=== PATIENT | male | born 1985 | race Caucasian/White ===

== ENCOUNTER → 2019-01-17 | Outpatient (CLI) | payer OTHER ==
--- NOTE | 2019-01-17 12:56 | REP ---
MRI brain: 01/17/2019. Indication: Headache. Comparison: None. Findings: There are no areas of restricted diffusion. There is no significant intracranial hemorrhage. No signal abnormalities are present within the brainstem or brain parenchyma. The midline structures, and craniocervical junction are unremarkable. No significant signal abnormalities are present within the brainstem or brain parenchyma. No significant fluid is present within the visualized paranasal sinuses/mastoid air cells. Impression: No acute intracranial process. Electronically Signed by Manpreet Patino DO 01/17/2019 12:49 P
--- NOTE | 2019-01-17 13:05 | REP ---
Intra and extracranial MRA: 01/17/2019. Indication: Headache. Dizziness. Comparison: None. Technique: 3-D [id number] imaging of the new intra-axial cranial circulations were performed. No IV Gadolinium was administered. Findings: There is no intracranial high-grade stenosis, vessel occlusion, aneurysm or AVM. There is no hemodynamically significant extracranial ICA stenosis by NASCET criteria or additional significant extracranial abnormalities of the carotid or vertebral arteries. Impression: No high-grade stenosis or vessel occlusion. Electronically Signed by Manpreet Patino DO 01/17/2019 12:57 P
--- NOTE | 2019-01-17 13:06 | REP ---
Intra and extracranial MRA: 01/17/2019. Indication: Headache. Dizziness. Comparison: None. Technique: 3-D [id number] imaging of the new intra-axial cranial circulations were performed. No IV Gadolinium was administered. Findings: There is no intracranial high-grade stenosis, vessel occlusion, aneurysm or AVM. There is no hemodynamically significant extracranial ICA stenosis by NASCET criteria or additional significant extracranial abnormalities of the carotid or vertebral arteries. Impression: No high-grade stenosis or vessel occlusion. Electronically Signed by Manpreet Patino DO 01/17/2019 12:57 P
== END ==
LOC: M PLARAD 08:28
PROVIDERS: ATTEND Psychiatry & Neurology Neurology
DX: G43.909 Migraine, unspecified, not intractable, without status migrainosus (principal)

== ENCOUNTER → 2019-10-30 | Emergency (ER) | payer OTHER | END | disposition left against medical advice (07) | LOC: M ED 14:40 | DX: Z53.21 Procedure and treatment not carried out due to patient leaving prior to being seen by health care provider (principal) ==

== ENCOUNTER → 2020-01-30 | Outpatient (CLI) | payer OTHER ==
--- NOTE | 2020-02-03 00:43 | ECWPNPC ---
PATIENT NAME: GUTIERREZ RESENDIZ : 1985 GENDER: MALE VISIT DATE: 01/30/2020 DISCHARGE DATE: 01/30/20 0950 VISIT LOCKED DATE TIME: PHYSICIAN: FABIANA SWIFT RESOURCE: FABIANA SWIFT REASON FOR APPOINTMENT 1. THORACIC AND LUMBAR PAIN HISTORY OF PRESENT ILLNESS DEPRESSION SCREENING: PHQ-9 LITTLE INTEREST OR PLEASURE IN DOING THINGSSEVERAL DAYS FEELING DOWN, DEPRESSED, OR HOPELESSSEVERAL DAYS TROUBLE FALLING OR STAYING ASLEEP, OR SLEEPING TOO MUCHNEARLY EVERY DAY FEELING TIRED OR HAVING LITTLE ENERGYSEVERAL DAYS POOR APPETITE OR OVEREATING SEVERAL DAYS FEELING BAD ABOUT YOURSELF-OR THAT YOU ARE A FAILURE OR HAVE LET YOURSELF OR YOUR FAMILY DOWN NOT AT ALL TROUBLE CONCENTRATING ON THINGS, SUCH READING THE NEWSPAPER OR WATCHING TELEVISION SEVERAL DAYS MOVING OR SPEAKING SO SLOWLY THAT OTHER PEOPLE COULD HAVE NOTICED. OR THE OPPOSITE- BEING SO FIDGETY OR RESTLESS THAT YOU HAVE BEEN MOVING AROUND A LOT MORE THAN USUALNOT AT ALL THOUGHTS THAT YOU WOULD BE BETTER OFF , OR OF HURTING YOURSELF IN SOME WAY?NOT AT ALL TOTAL SCORE:8 INTERPRETATIONMILD DEPRESSION PHQ-2 (2015 EDITION) LITTLE INTEREST OR PLEASURE IN DOING THINGS?SEVERAL DAYS FEELING DOWN, DEPRESSED, OR HOPELESS?SEVERAL DAYS TOTAL SCORE2 GENERAL: 34-YEAR-OLD GENTLEMAN REFERRED BY [facility] IN [place] TO EVALUATE CHRONIC GENERALIZED BACK PAIN. REPORTS LONG HISTORY OF GENERALIZED BACK PAIN DATING BACK TO HIGH SCHOOL. REPORTS AN INCIDENT IN 2016 WHERE HE WAS LIFTING A CAR AND PUSHING VEHICLE UP HILL. ALSO REPORTS A FALL INJURY APPROXIMATELY 5 MONTHS AGO STEPPING OFF A TRUCK INJURING HIS ANKLE AND FLAREUP OF CHRONIC LOW BACK PAIN. WORST AREA OF PAIN IS LOWER THORACIC REGION. PAIN IS AGGRAVATED BY PROLONGED SITTING AND BENDING. REVIEWED MRI OF THE LS-SPINE AND THORACIC SPINE. DISCUSSED TREATMENT PLAN. DENIES BOWEL OR BLADDER INCONTINENCE.- - -. FALL RISK SCREENING: SCREENING :ONE FALL WITH INJURY IN THE PAST YEAR FELL OFF OF TRUCK AND BRUISED BONE IN ANKLE PER PATIENT PAIN SCREENING: PATIENT HAS A COMPLAINT OF ACUTE OR CHRONIC PAIN :YES LOCATION OF PAIN:UPPER BACK, MID BACK, LOW BACK INTENSITY OF PAIN (SCALE OF 1 TO 10):4 WHAT DOES YOUR PAIN FEEL LIKE:STABBING, SORE DURATION:STEADY PAIN IS INCREASED BY:PROLONGED STANDING, ACTIVITIES PLAN/GOALS/TREATMENT/INTERVENTION/FOLLOW UP:SEE PLAN NURSING NOTE: - - -. PAIN CENTER INTAKE QUESTIONS: DO YOU HAVE A HISTORY OF MRSA? :NO DO YOU TAKE A BLOOD THINNERS? :NO DO YOU HAVE ANY BLEEDING DISORDERS? :NO ANY NEW NUMBNESS OR WEAKNESS IN YOUR LEGS OR ARMS? :NO ANY PACEMAKER,DEFIBRILLATOR, OR DORSAL COLUMN STIMULATOR? :NO DO YOU HAVE ANY RASHES OR OPEN SORES? :NO ARE YOU ALLERGIC TO IV DYE? :NO ARE YOU DIABETIC? :NO PATIENT ON METFORMIN FOR WEIGHT LOSS ANY NEW PROBLEMS WITH YOUR MEDICATIONS? :NO HAVE YOU RECEIVED A VACCINE IN THE PAST 30 DAYS? :NO DO YOU PLAN TO RECEIVE A VACCINE IN THE NEXT 21 DAYS? :NO PATIENT EDUCATED ABOUT WAITING 21 DAYS POST PROCEDURE FOR FLU VACCINE IF A PROCEDRE IS APPLICABLE DO YOU NEED ANY PRESCRIPTION? :NO DO YOU TAKE ANY IMMUNOSUPPRESSIVE MEDICATIONS? :NO CURRENT MEDICATIONS TAKING AIMOVIG 70 MG/ML SOLUTION AUTO-INJECTOR DIRECTED SUBCUTANEOUS TAKING TOPIRAMATE 100 MG TABLET 1 TABLET ORALLY BID TAKING GABAPENTIN 300 MG CAPSULE 1 CAPSULE ORALLY TID TAKING METOPROLOL SUCCINATE ER 50 MG TABLET EXTENDED RELEASE 24 HOUR 1 TABLET ORALLY ONCE A DAY TAKING METFORMIN HCL 1000 MG TABLET 1 TABLET WITH A MEAL ORALLY BID TAKING OMEPRAZOLE 40 MG CAPSULE DELAYED RELEASE 1 CAPSULE 30 MINUTES BEFORE MORNING MEAL ORALLY ONCE A DAY TAKING BUPROPION HCL 75 MG TABLET 2 TABLETS ORALLY TWICE A DAY TAKING LIPITOR 40 MG TABLET 1 TABLET ORALLY ONCE A DAY TAKING LISINOPRIL 40 MG TABLET 1 TABLET ORALLY ONCE A DAY TAKING ASPIR-81 TAKING SINGULAIR 10 MG TABLET 1 TABLET ORALLY ONCE A DAY TAKING VITAMIN D3 COMPLETE - TABLET DIRECTED ORALLY 125MCG DAILY MEDICATION LIST REVIEWED AND RECONCILED WITH THE PATIENT PAST MEDICAL HISTORY HEART ATTACK (1 STENT) HYPERTENSION DYSLIPIDEMIA ANXIETY DEPRESSION OBESITY HIATAL HERNIA MIGRAINE HEADACHES ESOPHAGEAL REFLUX SLEEP APNEA INSOMNIA ALLERGIES SEASONAL: CONGESTION - ALLERGY PENICILLIN (FOR ALLERGIES USE ONLY): ANGIOEDEMA SURGICAL HISTORY HERNIA REPAIR STENT PLACEMENT 2016 FAMILY HISTORY FATHER: ALIVE, DIAGNOSED WITH HYPERTENSION, DIABETES MOTHER: ALIVE SIBLINGS: ALIVE FATHER: BACK PAIN, SLEEP APNEAMOTHER: SLEEP APNEASISTER: ASTHMA. SOCIAL HISTORY GENERAL: TOBACCO USE ARE YOU A:FORMER SMOKER HOW LONG HAS IT BEEN SINCE YOU LAST SMOKED?1-5 YEARS VAPORNO E-CIGARETTENO LATEX QUESTIONNAIRE LATEX ALLERGY : HAVE YOU EVER DEVELOPED ANY TYPE OF REACTION AFTER HANDLING LATEX PRODUCTS SUCH RUBBER GLOVES, CONDOMS, DIAPHRAGMS, BALLOONS, SOCKS, OR UNDERWEAR?NO LATEX ALLERGY : HAVE YOU EVER DEVELOPED ANY TYPE OF REACTION DURING OR AFTER DENTAL APPOINTMENT, VAGINAL/RECTAL EXAMINATION, SURGICAL PROCEDURE, OR ANY OTHER EXPOSURE?NO LATEX RISK : HAVE YOU EVER HAD ANY DIFFICULTY BREATHING OR HIVES AFTER EATING OR HANDLING ANY FRUITS, OR VEGETABLES; SUCH KIWI, BANANAS, STONE FRUITS, OR CHESTNUTSNO LATEX RISK : DO YOU HAVE A PREVIOUS PERSONAL HISTORY OF MORE THAN NINE SURGERIES, SPINA BIFIDA, OR REPEATED CATHERIZATIONS? NO LATEX RISK : ARE YOU FREQUENTLY EXPOSED TO LATEX PRODUCTS IN YOUR OCCUPATION?NO DATE ASKED : 01/30/2020 ALCOHOL SCREENING DID YOU HAVE A DRINK CONTAINING ALCOHOL IN THE PAST YEAR?YES HOW OFTEN DID YOU HAVE A DRINK CONTAINING ALCOHOL IN THE PAST YEAR?MONTHLY OR LESS (1 POINT) HOW MANY DRINKS DID YOU HAVE ON A TYPICAL DAY WHEN YOU WERE DRINKING IN THE PAST YEAR?1 OR 2 (0 POINTS) HOW OFTEN DID YOU HAVE SIX OR MORE DRINKS ON ONE OCCASION IN THE PAST YEAR?NEVER (0 POINTS) POINTS1 INTERPRETATIONNEGATIVE RECREATIONAL DRUG USE DRUG USE?NO LANGUAGE LANGUAGES SPOKEN:PORTUGUESE EDUCATION LEVEL OF EDUCATION:HIGH SCHOOL LEARNING BARRIERS / SPECIAL NEEDS BARRIERS TO LEARNING?NO HEARING IMPAIRED?YES :HEARING AIDES BILATERAL VISION IMPAIRED?NO COGNITIVELY IMPAIRED?NO READINESS TO LEARN?YES LEARNING PREFERENCES?YES :TAPES/VIDEOS, HANDOUTS, CLASSES, DEMONSTRATION/VERBAL INSTRUCTION LEARNING CAPABILITIES PRESENT?YES EMOTIONAL BARRIERS?NO SPECIAL DEVICES?NO POWER SHOVEL OPERATOR HELPER NEEDED?NO OCCUPATION: UNEMPLOYED. DIET: NO ADDED SALT, NO CONCENTRATED SWEETS., CARBOHYDRATE CONTROLLED. HOUSING: PARENTS HOME. ADVANCE DIRECTIVE ADVANCE DIRECTIVE DISCUSSED WITH PATIENT:YES DENIES HCP AT THIS TIME, PAPERWORK GIVEN TO PATIENT. HOSPITALIZATION/MAJOR DIAGNOSTIC PROCEDURE SURGERY RELATED REVIEW OF SYSTEMS CONSTITUTIONAL: ANY RECENT FEVER NO . CHILLS NO . WEIGHT CHANGE OF UNKNOWN REASONS NO . GASTROENTEROLOGY: NEW UNEXPLAINABLE CHANGES IN BOWEL CONTROL NO . CONSTIPATION NO . GENITOURINARY: ANY NEW CHANGE IN BLADDER CONTROL? NO . NEUROLOGY: NEW ONSET DIZZINESS OR NEUROLOGICAL CHANGES NOT MENTIONED NO . NEW NUMBNESS OR PAIN PATTERNS NOT MENTIONED AND PERTINENT TO TODAY'S VISIT NO . CARDIOLOGY: NEW CHEST PRESSURE NO . NEW CHEST PAIN NO . RESPIRATORY: UNEXPLAINABLE COUGH NO . NEW SHORTNESS OF BREATH NO . VITAL SIGNS WT 477.4 LBS, HT 74 IN, BMI 61.29 INDEX, BP 179/77 MM HG, HR 81 /MIN, RR 20 /MIN, TEMP 97.1 F, OXYGEN SAT % 98%, SAFE IN ENV? (Y/N) YES, NA INITIALS WA 08:41, REVIEWED BY: CALISTA WEBSTER RN BSN. EXAMINATION GENERAL EXAMINATION: GENERALMORBIDLY OBESE , PLEASANT . PSYCHAPPROPRIATE MOOD AND AFFECT . FACE:UNREMARKABLE. NECK:NO LYMPHADENOPATHY, SUPPLE, . LUNGS:CLEAR TO AUSCULTATION BILATERALLY, NO WHEEZES, RHONCHI, RALES. HEART:NO MURMURS, REGULAR RATE AND RHYTHM. MUSCULOSKELETAL:NORMAL RANGE OF MOTION/MUSCLE STRENGTH TESTING 5/5 UPPER AND LOWER EXTREMITIES. LUMBAR:TENDER OVER L/S AXIS AND LUMBAR PARASPINALS . THORACIC SPINE:MARKED TENDERNESS NOTED OVER LOWER THORACIC SPINE AND PARASPINALS TRIGGER POINTS ELICITED MID TO LOWER THORACIC PARASPINALS. PAIN IN THIS AREA IS EXAGGERATED WITH RANGE OF JOINT MOTION OF THE SPINE. . DIAGNOSTIC TESTS REVIEWEDMRI OF THE LUMBOSACRAL SPINE AND THORACIC SPINE 2019 . 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 OTHERS NOTES: 01/30/20 0905 NURSE SPOKE WITH QMP, PROVIDER AWARE PATIENT PATIENT SCORED AN 8 ON PHQ9, PATIENT IS NOT ESTABLISHED WITH MENTAL HEALTH SERVICES AT THIS TIME BUT IS ON PSYCHTROPIC MEDICATION. PATIENT GIVEN [facility] INFORMATION. LUKE WEBSTER RN BSN. PROCEDURE CODES FA211 ESTABILISHED PATIENT [facility] CHARGE DISPOSITION & COMMUNICATION FOLLOW UP POST PROCEDURE (REASON: T 11 THORACIC EPIDURAL STEROID INJECTION) ELECTRONICALLY SIGNED BY DARRELL WILLETT ON 02/02/2020 AT 11:13 AM EST DISCLAIMER : THIS IS A VISIT SUMMARY EXTRACTED FROM THE [employer] CHART. IT IS NOT A COPY OF THE [employer] PROGRESS NOTE. SARI
== END ==
LOC: M PAIN 08:30
PROVIDERS: ATTEND Nurse Practitioner Family
DX: M51.24 Other intervertebral disc displacement, thoracic region (principal); I25.2 Old myocardial infarction; E78.5 Hyperlipidemia, unspecified; F41.9 Anxiety disorder, unspecified; F32.9 Major depressive disorder, single episode, unspecified; E66.9 Obesity, unspecified; K44.9 Diaphragmatic hernia without obstruction or gangrene; G43.909 Migraine, unspecified, not intractable, without status migrainosus; Z95.5 Presence of coronary angioplasty implant and graft; K21.9 Gastro-esophageal reflux disease without esophagitis; G47.30 Sleep apnea, unspecified; G47.00 Insomnia, unspecified; Z87.891 Personal history of nicotine dependence; Z79.82 Long term (current) use of aspirin; Z79.84 Long term (current) use of oral hypoglycemic drugs; Z79.899 Other long term (current) drug therapy; Z88.0 Allergy status to penicillin; J30.2 Other seasonal allergic rhinitis; Z68.44 Body mass index [BMI] 60.0-69.9, adult

== ENCOUNTER → 2020-02-21 | Outpatient (CLI) | payer OTHER | LOC: M LABSMTC 11:46 | PROVIDERS: ATTEND Anesthesiology | DX: Z20.828 Contact with and (suspected) exposure to other viral communicable diseases (principal) ==

== ENCOUNTER → 2020-02-24 | Outpatient (CLI) | payer OTHER ==
[~2020-02-24] MED LIST: ISOVUE-M 300 61% 15ML VIAL As Ordered ONE; LIDOCAINE 1% SDV 30ML VIAL As Ordered ONE; NORCO, ANEXSIA 5/325MG TABLET (HYDROcodone/ACETAMINOPHEN) As Ordered ONE; methylPREDNISolone SUSP 40MG/ML 1ML VIAL (DEPO MEDROL) As Ordered ONE
--- NOTE | 2020-02-24 15:12 | REP ---
INDICATION: PAIN. COMPARISON: None. TECHNIQUE: Four views. 38.2 seconds of fluoroscopy time is reported. FINDINGS: A sequence of 4 last image hold fluoroscopically obtained spot radiograph(s) of the lumbar spine document(s) needle position(s) and contrast injection associated with injection procedure. IMPRESSION: Procedural imaging. <Electronically signed by Tristen Anderson > 02/24/20 [id number]
--- NOTE | 2020-03-03 04:27 | ECWPNPC ---
PATIENT NAME: GUTIERREZ RESENDIZ : 1985 GENDER: MALE VISIT DATE: 02/24/2020 DISCHARGE DATE: 02/24/20 1528 VISIT LOCKED DATE TIME: PHYSICIAN: MAREK IRBY MD RESOURCE: MAREK IRBY MD REASON FOR APPOINTMENT 1. THORACIC EPIDURAL STEROID INJECTION T11-T12 HISTORY OF PRESENT ILLNESS GENERAL: -. FALL RISK SCREENING: SCREENING :ONE FALL WITH INJURY IN THE PAST YEAR PAIN SCREENING: PATIENT HAS A COMPLAINT OF ACUTE OR CHRONIC PAIN :YES LOCATION OF PAIN:UPPER BACK, MID BACK, LOW BACK INTENSITY OF PAIN (SCALE OF 1 TO 10):7 WHAT DOES YOUR PAIN FEEL LIKE:ACHING, CONTINOUS, THROBBING DURATION:CONTINOUS, CONSTANT PAIN IS INCREASED BY:ACTIVITIES, PROLONGED STANDING PAIN IS DECREASED BY:USE OF PAIN MEDICATIONS, OTHERS REST, HEAT NURSING NOTE: -. PAIN CENTER INTAKE QUESTIONS: DO YOU HAVE A HISTORY OF MRSA? :NO DO YOU TAKE A BLOOD THINNERS? :NO DO YOU HAVE ANY BLEEDING DISORDERS? :NO ANY NEW NUMBNESS OR WEAKNESS IN YOUR LEGS OR ARMS? :NO ANY PACEMAKER,DEFIBRILLATOR, OR DORSAL COLUMN STIMULATOR? :NO DO YOU HAVE ANY RASHES OR OPEN SORES? :NO ARE YOU ALLERGIC TO IV DYE? :NO ARE YOU DIABETIC? :NO ANY NEW PROBLEMS WITH YOUR MEDICATIONS? :NO HAVE YOU RECEIVED A VACCINE IN THE PAST 30 DAYS? :NO DO YOU PLAN TO RECEIVE A VACCINE IN THE NEXT 21 DAYS? :NO DO YOU TAKE ANY IMMUNOSUPPRESSIVE MEDICATIONS? :NO ANY HISTORY OF SEIZURES? :NO ANY HISTORY OF CARDIAC ISSUES OR EVENTS? :YES HISTORY OF MYOCARDIAL INFARCTION WITH 1 CORONARY STENT. DO YOU HAVE SLEEP APNEA? :YES DO YOU WEAR A CPAP?YES ANY RECENT HEAD INJURY? :NO DO YOU HAVE ANY NEW INFECTIONS? :NO IS THERE A CHANCE YOU COULD BE ? :NO ARE YOU BREAST FEEDING? :NO WHEN DID YOU LAST EAT? : 02/23/201999 WHEN DID YOU LAST DRINK? : 02/24/20829 WHAT DID YOU LAST DRINK? : SPRITE NAME OF PERSON DRIVING YOU HOME? : (MOTHER) NICOLLE DO YOU HAVE ANY OTHER QUESTIONS OR CONCERNS? : NO CURRENT MEDICATIONS TAKING AIMOVIG 70 MG/ML SOLUTION AUTO-INJECTOR DIRECTED SUBCUTANEOUS MONTHLY, NOTES: 02/09/20 TAKING TOPIRAMATE 100 MG TABLET 1 TABLET ORALLY BID, NOTES: 11/30/20 2100 TAKING GABAPENTIN 300 MG CAPSULE 1 CAPSULE ORALLY TID, NOTES: 02/24/20829 TAKING METOPROLOL SUCCINATE ER 50 MG TABLET EXTENDED RELEASE 24 HOUR 1 TABLET ORALLY ONCE A DAY, NOTES: 02/24/20829 TAKING METFORMIN HCL 1000 MG TABLET 1 TABLET WITH A MEAL ORALLY BID, NOTES: 02/23/20829 TAKING OMEPRAZOLE 40 MG CAPSULE DELAYED RELEASE 1 CAPSULE 30 MINUTES BEFORE MORNING MEAL ORALLY TWICE DAILY, NOTES: 02/24/20829 TAKING BUPROPION HCL 75 MG TABLET 2 TABLETS ORALLY TWICE A DAY, NOTES: 02/24/20829 TAKING LIPITOR 40 MG TABLET 1 TABLET ORALLY ONCE A DAY, NOTES: 02/23/202099 TAKING LISINOPRIL 40 MG TABLET 1 TABLET ORALLY ONCE A DAY, NOTES: 02/24/20829 TAKING ASPIR-81 DAILY, NOTES: 02/24/20829 TAKING SINGULAIR 10 MG TABLET 1 TABLET ORALLY ONCE A DAY, NOTES: 02/24/20829 TAKING VITAMIN D3 COMPLETE - TABLET DIRECTED ORALLY 125MCG DAILY, NOTES: 02/24/20829 MEDICATION LIST REVIEWED AND RECONCILED WITH THE PATIENT PAST MEDICAL HISTORY HEART ATTACK (1 STENT) HYPERTENSION DYSLIPIDEMIA ANXIETY DEPRESSION OBESITY HIATAL HERNIA MIGRAINE HEADACHES ESOPHAGEAL REFLUX SLEEP APNEA INSOMNIA ALLERGIES SEASONAL: CONGESTION - ALLERGY PENICILLIN (FOR ALLERGIES USE ONLY): ANGIOEDEMA SURGICAL HISTORY HERNIA REPAIR STENT PLACEMENT 2015 FAMILY HISTORY FATHER: ALIVE, DIAGNOSED WITH HYPERTENSION, DIABETES MOTHER: ALIVE SIBLINGS: ALIVE FATHER: BACK PAIN, SLEEP APNEAMOTHER: SLEEP APNEASISTER: ASTHMA. SOCIAL HISTORY GENERAL: TOBACCO USE ARE YOU A:FORMER SMOKER HOW LONG HAS IT BEEN SINCE YOU LAST SMOKED?1-5 YEARS VAPORNO E-CIGARETTENO LATEX QUESTIONNAIRE LATEX ALLERGY : HAVE YOU EVER DEVELOPED ANY TYPE OF REACTION AFTER HANDLING LATEX PRODUCTS SUCH RUBBER GLOVES, CONDOMS, DIAPHRAGMS, BALLOONS, SOCKS, OR UNDERWEAR?NO LATEX ALLERGY : HAVE YOU EVER DEVELOPED ANY TYPE OF REACTION DURING OR AFTER DENTAL APPOINTMENT, VAGINAL/RECTAL EXAMINATION, SURGICAL PROCEDURE, OR ANY OTHER EXPOSURE?NO LATEX RISK : HAVE YOU EVER HAD ANY DIFFICULTY BREATHING OR HIVES AFTER EATING OR HANDLING ANY FRUITS, OR VEGETABLES; SUCH KIWI, BANANAS, STONE FRUITS, OR CHESTNUTSNO LATEX RISK : DO YOU HAVE A PREVIOUS PERSONAL HISTORY OF MORE THAN NINE SURGERIES, SPINA BIFIDA, OR REPEATED CATHERIZATIONS? NO LATEX RISK : ARE YOU FREQUENTLY EXPOSED TO LATEX PRODUCTS IN YOUR OCCUPATION?NO DATE ASKED : 02/23/2020 ALCOHOL SCREENING DID YOU HAVE A DRINK CONTAINING ALCOHOL IN THE PAST YEAR?YES HOW OFTEN DID YOU HAVE SIX OR MORE DRINKS ON ONE OCCASION IN THE PAST YEAR?NEVER (0 POINTS) HOW MANY DRINKS DID YOU HAVE ON A TYPICAL DAY WHEN YOU WERE DRINKING IN THE PAST YEAR?1 OR 2 (0 POINTS) HOW OFTEN DID YOU HAVE A DRINK CONTAINING ALCOHOL IN THE PAST YEAR?MONTHLY OR LESS (1 POINT) POINTS1 INTERPRETATIONNEGATIVE RECREATIONAL DRUG USE DRUG USE?NO LANGUAGE LANGUAGES SPOKEN:UZBEK EDUCATION LEVEL OF EDUCATION:HIGH SCHOOL LEARNING BARRIERS / SPECIAL NEEDS BARRIERS TO LEARNING?NO HEARING IMPAIRED?YES :HEARING AIDES BILATERAL VISION IMPAIRED?NO COGNITIVELY IMPAIRED?NO READINESS TO LEARN?YES LEARNING PREFERENCES?YES :TAPES/VIDEOS, HANDOUTS, CLASSES, DEMONSTRATION/VERBAL INSTRUCTION LEARNING CAPABILITIES PRESENT?YES EMOTIONAL BARRIERS?NO SPECIAL DEVICES?NO PRINCIPAL WEB DEVELOPER NEEDED?NO OCCUPATION: UNEMPLOYED. DIET: NO ADDED SALT, NO CONCENTRATED SWEETS., CARBOHYDRATE CONTROLLED. PAIN CLINIC PFS, CLERGY, PUBLIC HEALTH REFERRALS HAS THE PATIENT BEEN EDUCATED REGARDING HIS/HER PLAN OF CARE?YES HAS THE PATIENT BEEN EDUCATED REGARDING PAIN, THE RISK FOR PAIN, THE IMPORTANCE OF EFFECTIVE PAIN MANAGEMENT, AND THE PAIN ASSESSMENT PROCESS?YES HOUSING: PARENTS HOME. ADVANCE DIRECTIVE ADVANCE DIRECTIVE DISCUSSED WITH PATIENT:YES DENIES HCP AT THIS TIME, PAPERWORK GIVEN TO PATIENT. HOSPITALIZATION/MAJOR DIAGNOSTIC PROCEDURE SURGERY RELATED VITAL SIGNS WT 468.4 LBS, HT 74 IN, BMI 60.13 INDEX, BP 143/69 MM HG, HR 94 /MIN, RR 20 /MIN, TEMP 96.9 F, OXYGEN SAT % 96%, SAFE IN ENV? (Y/N) YES, NA INITIALS MN 11:08, REVIEWED BY: CALISTA WEBSTER ENGINEERING PRODUCTION WORKER. EXAMINATION GENERAL EXAMINATION: THE PATIENT IS ALERT, ORIENTED TIMES THREE AND COOPERATIVE. HEART SHOWS REGULAR RHYTHM, NO MURMURS AND NO GALLOPS. LUNGS ARE CLEAR TO AUSCULTATION. ASSESSMENTS INTERVERTEBRAL DISC DISORDERS WITH RADICULOPATHY, THORACIC REGION - M51.14 (PRIMARY) TREATMENT INTERVERTEBRAL DISC DISORDERS WITH RADICULOPATHY, THORACIC REGION [facility] FLUORO GUIDE SPINE INJECTION (PAIN)[id number] MEDICATION: NORCO TABLET 5MG/325MG ORALLY (HYDROCODONE/ACETAMINOPHEN)LUKE WEBSTER 02/24/2020 1:55:42 PM > VERIFIED. LOT# [id number] EXP: 05/2021. DENVER ARIAS 02/24/2020 1:58:26 PM > NORCO VERIFIED DENVER ARIAS 02/24/2020 1:59:29 PM > ADMINISTERED SALINE LOCK NOTES: DISCHARGE INSTRUCTIONS REVIEWED WITH PATIENT AND HE VERBALIZED UNDERSTANDING. . PROCEDURES PAIN NURSING RECORD PRE-PROCEDURE IV SITE LEFT HAND, IV STARTED # 22, IV STARTED BY: Jo WEBSTER RN, IV ATTEMPTS 2 1ST ATTEMPT IN RIGHT AC, UNSUCCESSFUL, DSD APPLIED., PRE-PROCEDURE ORAL MEDICATIONS YES PER MD ORDER. PROCEDURE IN ROOM 1432, PHYSICIAN IN ROOM 1450, START 1454, FINISH 1504, PHYSICIAN OUT OF ROOM 1506, OUT OF ROOM 1510, STEROID DEPOMEDROL, O2 RA, ECG NORMAL SINUS, PATIENT SHIELDED YES, SAFETY STRAP YES, PREP BETADINE BY Boom ARIAS RN, IV INFUSED N/A, DRESSING TEGADERM BY DR IRBY LOC: 1. ALERT, ORIENTED RESP: 1. REGULAR, NO DYSPNEA COLOR: 1. PINK SKIN: 1. WARM, DRY POSITION: 1. PRONE VITALS: DENVER ARIAS 02/24/2020 2:40:20 PM > 136/72 HR 84 16 97% , DENVER ARIAS 02/24/2020 2:55:01 PM > 125/60 76 16 97% , DENVER ARIAS 02/24/2020 3:22:17 PM > 141/74 82 16 96% D/C V/S DISCHARGE: POST PAIN 0, DRESSING SITE DRY AND INTACT, IV DISCONTINUED, SITE CLEAR, CATHETER INTACT, GAIT STEADY, TEACHING COMPLETED, PATIENT ACKNOWLEDGES UNDERSTANDING YES, PATIENT DISCHARGED AT 1525 PN THORACIC EPIDURAL PRE PROCEDURE DIAGNOSIS THORACIC DISC DISORDER WITH RADICULOPATHY POST PROCEDURE DIAGNOSIS THORACIC DISC DISORDER WITH RADICULOPATHY PROCEDURE THORACIC EPIDURAL STEROID INJECTION UNDER FLUOROSCOPIC GUIDANCE SURGEON DR. MAREK IRBY RESIDENTIAL PROGRAM WORKER NONE ANESTHESIA LOCAL PRE PROCEDURE NOTE THE PATIENT HAS A HISTORY OF CHRONIC THORACIC PAIN. I EVALUATED THE PATIENT AND REVIEWED THE CHART. I WENT OVER THE RISKS, ALTERNATIVES, AND BENEFITS ASSOCIATED WITH THIS PROCEDURE. THE PATIENT WOULD LIKE TO PROCEED AND GIVE CONSENT TO PERFORMED THE PROCEDURE. I DISCUSSED THAT THE USE OF STEROIDS MAY CONTRIBUTE TO IMMUNOSUPPRESSION OF THE PATIENT'S BODY AGAINST INFECTIONS SUCH COVID-19. THE PATIENT IS AWARE OF THE POTENTIAL COMPLICATIONS ASSOCIATED WITH THIS VIRUS, INCLUDING, BUT NOT LIMITED TO, . THE PATIENT DENIES UNEXPLAINABLE WEIGHT LOSS, FEVER, CHILLS, OR NEW CHANGES IN URINARY OR BOWEL CONTROL. THE PATIENT IS COVID-19 NEGATIVE DESCRIPTION OF PROCEDURE THE PATIENT WAS BROUGHT TO THE PROCEDURE ROOM AND PLACED IN THE PRONE POSITION. THE THORACIC AREA WAS CLEANED WITH BETADINE SOLUTION AND DRAPED ASEPTICALLY. THE PROCEDURE WAS DONE UNDER STERILE CONDITIONS. I CHECKED LATERALITY AND THE LEVEL WHERE THE PROCEDURE WAS GOING TO BE PERFORMED WITH THE PATIENT AND THE SUPPORTING STAFF AT THE MOMENT OF THE TIME OUT IN THE PROCEDURE ROOM. UNDER FLUOROSCOPIC GUIDANCE, THE TARGET POINT WAS SELECTED AT THE INTERLAMINAR LEVEL OF T11-T12. I CONFIRMED AGAIN WITH EVERYONE IN THE ROOM THE LATERALITY OF THE TARGET AT 1453. LIDOCAINE WAS USED TO NUMB THE SKIN AND THE SUBCUTANEOUS TISSUE BELOW IT. EPIDURAL TUOHY NEEDLE, 17-GAUGE, WAS ADVANCED UNDER FLUOROSCOPIC GUIDANCE AND FOLLOWING PATIENT FEEDBACK UNTIL THE EPIDURAL SPACE WAS REACHED 11 CM DEEP INTO THE SKIN BY THE LOSS OF RESISTANCE TECHNIQUE. ISOVUE M DYE 30%, 0.25 ML, WAS INJECTED SHOWING ADEQUATE SPREAD OF THE DYE. THEN, A SOLUTION OF 3 ML OF NORMAL SALINE WITH DEPO-MEDROL 80 MG WAS INJECTED SLOWLY FOLLOWING PATIENT FEEDBACK. THERE WAS NO EVIDENCE OF BLOOD, PARESTHESIA OR CEREBROSPINAL FLUID DURING THE PROCEDURE. THE PATIENT WAS SENT TO THE RECOVERY ROOM. THE PATIENT WAS MOVING THE EXTREMITIES AND DOING WELL. THERE WAS NO COMPLICATION DURING THE PROCEDURE. EBL LESS THAN 5 ML. FLUOROSCOPY TIME WAS 38 SECONDS POST PROCEDURE NOTE DEPENDING ON THE RESULTS, CONSIDER WORKING WITH THE FACET JOINTS. THE PROCEDURE DONE WAS DISCUSSED WITH THE PATIENT. THE PATIENT WILL BE SEEN IN A FOLLOW UP IN THE NEXT FEW WEEKS. I AM LOOKING FOR LONG LASTING PAIN RELIEF FOR THE PATIENT WITH THIS INTERVENTION. INSTRUCTIONS WERE GIVEN, QUESTIONS WERE ANSWERED, AND THE PATIENT EXPRESSED UNDERSTANDING AND AGREES WITH THE PLAN. I, BOSTON KELLER, DOCUMENTED THE ABOVE INFORMATION ACTING A SCRIBE FOR DR. IRBY. I HAVE REVIEWED THE ABOVE DOCUMENT, WRITTEN BY BOSTON KELLER, MAIL OPENER, AND I VERIFY THAT IT IS ACCURATE PROCEDURE CODES 17721 CERVICAL/THORACIC W/ IMAGING DISPOSITION & COMMUNICATION FOLLOW UP FOLLOW UP WITH CONTACT LENS BLOCKER AND CUTTER (REASON: POST THORACIC EPIDURAL STEROID INJECTION T11-T12) ELECTRONICALLY SIGNED BY MAREK IRBY MD, MD ON 03/02/2020 AT 12:12 PM EST DISCLAIMER : THIS IS A VISIT SUMMARY EXTRACTED FROM THE [employer] CHART. IT IS NOT A COPY OF THE [employer] PROGRESS NOTE. MTDD
== END ==
LOC: M PAIN 11:00
PROVIDERS: ATTEND Anesthesiology
DX: M51.14 Intervertebral disc disorders with radiculopathy, thoracic region (principal); I25.2 Old myocardial infarction; I10 Essential (primary) hypertension; E78.5 Hyperlipidemia, unspecified; F41.9 Anxiety disorder, unspecified; F32.9 Major depressive disorder, single episode, unspecified; E66.9 Obesity, unspecified; K44.9 Diaphragmatic hernia without obstruction or gangrene; G43.909 Migraine, unspecified, not intractable, without status migrainosus; J30.2 Other seasonal allergic rhinitis; K21.9 Gastro-esophageal reflux disease without esophagitis; G47.30 Sleep apnea, unspecified; G47.00 Insomnia, unspecified; Z87.891 Personal history of nicotine dependence; Z79.84 Long term (current) use of oral hypoglycemic drugs; Z79.82 Long term (current) use of aspirin; Z79.899 Other long term (current) drug therapy; Z88.0 Allergy status to penicillin
CPT/HCPCS: 62321; J1030; Q9967

== ENCOUNTER → 2021-08-12 | Outpatient (CLI) | payer OTHER | LOC: M RAD 06:10 | PROVIDERS: ATTEND Nurse Practitioner Family | DX: K21.9 Gastro-esophageal reflux disease without esophagitis (principal); R68.81 Early satiety; K44.9 Diaphragmatic hernia without obstruction or gangrene | CPT/HCPCS: 78264; A9541 ==

== ENCOUNTER 2023-05-18 11:02 | Day surgery (SDC) | payer OTHER ==
[~2023-05-18] VITALS: Ht 193 cm; Wt 187.6 kg
[~2023-05-18 11:02] MED LIST changes: +AIMO70IN SC; +ALLO100T PO; +ASPI-226 PO; +ATOR80TA59 PO; +BASA100I SC; +BUPR150T12 PO; +DULA4.5P SC; +FARX1TAB3 PO; +FLON1SPR; +GABA-284 PO; +INDO50CA91 PO; +INSU100I12 SC; +INSULANT SC; -ISOVUE-M 300 61% 15ML VIAL As Ordered ONE; -LIDOCAINE 1% SDV 30ML VIAL As Ordered ONE; +LISI40TA4 PO; +MELA10TA14 PO; +METO1TAB7 PO; +MONT10TA97 PO; -NORCO, ANEXSIA 5/325MG TABLET (HYDROcodone/ACETAMINOPHEN) As Ordered ONE; +OMEP40CA5 PO; +TOPI100T9 PO; -methylPREDNISolone SUSP 40MG/ML 1ML VIAL (DEPO MEDROL) As Ordered ONE
[2023-05-18] MEDS: NS 1,000 ML IV ONE (11:38)
[2023-05-18 13:35] VITALS: TEMP 97.8
[2023-05-18 13:51] VITALS: BP 133/72; O2SAT 96
== END 2023-05-18 13:59 | disposition home or self-care (01) ==
LOC: M OPP 11:02
PROVIDERS: ATTEND Surgery
DX: K64.0 First degree hemorrhoids (principal); R10.13 Epigastric pain; K22.89 Other specified disease of esophagus; E11.9 Type 2 diabetes mellitus without complications; G47.30 Sleep apnea, unspecified; Z99.89 Dependence on other enabling machines and devices; I25.119 Atherosclerotic heart disease of native coronary artery with unspecified angina pectoris; Z95.5 Presence of coronary angioplasty implant and graft; Z86.74 Personal history of sudden cardiac arrest; Z79.02 Long term (current) use of antithrombotics/antiplatelets; Z79.4 Long term (current) use of insulin; Z79.51 Long term (current) use of inhaled steroids; Z79.82 Long term (current) use of aspirin; Z79.891 Long term (current) use of opiate analgesic; Z79.899 Other long term (current) drug therapy

== ENCOUNTER 2023-11-01 12:01 | Day surgery (SDC) | payer OTHER ==
[~2023-11-01] VITALS: Ht 193 cm; Wt 175.3 kg
[~2023-11-01 12:01] MED LIST changes: +TIRZ5PEN SQ
[2023-11-01] MEDS ORDERED: propofoL 200 MG/20 ML VIAL As Ordered ONE (13:09)
[2023-11-01] MEDS ORDERED: MIDAZOLAM INJ 2MG/2ML VIAL As Ordered ONE (13:09)
[2023-11-01] MEDS ORDERED: fentaNYL 250 MCG/5 ML INJECTION As Ordered ONE (13:09)
[2023-11-01] MEDS ORDERED: ROCURONIUM BROMIDE 50MG/5ML VIAL As Ordered ONE (13:09)
[2023-11-01] MEDS ORDERED: ONDANSETRON 4MG 2ML VIAL As Ordered ONE (13:09)
[2023-11-01] MEDS ORDERED: LIDOCAINE 2% 100MG/5ML SDV (FOR ANES.) As Ordered ONE (13:09)
[2023-11-01] MEDS ORDERED: ACETAMINOPHEN 1000MG 100ML IV BAG As Ordered ONE (13:11)
[2023-11-01] MEDS ORDERED: LR 1,000 ML IV SCH ×2 (13:35→16:05)
[2023-11-01 13:36] LABS: HEMATOCRIT 45.3 % (42.0-52.0); HEMOGLOBIN 15.6 g/dl (13.5-17.5); MEAN CORPUSCULAR HEMOGLOBIN 30.8 pg (27.0-33.0); MEAN CORPUSCULAR HGB CONC 34.4 g/dl (32.0-36.5); MEAN CORPUSCULAR VOLUME 89.3 fl (80.0-96.0); PLATELET COUNT, AUTOMATED 283 10^3/uL (150-450); RED BLOOD COUNT 5.07 10^6/uL (4.30-6.10); WHITE BLOOD COUNT 12.1 10^3/uL (4.0-10.0)
[2023-11-01] MEDS: ceFAZolin SOD 1 GM in D5W MINI-BAG PLUS 50 ML IV ONE (15:08)
[2023-11-01] MEDS: ceFAZolin SOD 2 GM in IV 1 EA IV ONE (15:08)
[2023-11-01] MEDS ORDERED: METOCLOPRAMIDE INJ 10MG/2ML VIAL As Ordered ONE (15:25)
[2023-11-01] MEDS ORDERED: KETOROLAC 60MG 2ML VIAL As Ordered ONE (15:25)
[2023-11-01] MEDS ORDERED: SUGAMMADEX SODIUM 500 MG/5 ML VIAL (BRIDION) As Ordered ONE (15:25)
[2023-11-01] MEDS ORDERED: fentaNYL 100 MCG/2 ML INJECTION IV PRN (16:05)
[2023-11-01] MEDS ORDERED: METOCLOPRAMIDE INJ 10MG/2ML VIAL IV PRN (16:15)
[2023-11-01] MEDS ORDERED: NORCO, ANEXSIA 5/325MG TABLET (HYDROcodone/ACETAMINOPHEN) PO PRN (16:40)
[2023-11-01] MEDS: ONDANSETRON 4MG 2ML VIAL IV PRN (16:51)
[2023-11-01] MEDS: HYDROMORPHONE HCL 0.5 MG/ 0.5 ML SYRINGE IV PRN (16:51)
[2023-11-01] MEDS: oxyCODONE 5MG TAB PO PRN (16:52)
[2023-11-01 18:00] VITALS: BP 125/57; TEMP 96.8; O2SAT 95
== END 2023-11-01 18:25 | disposition home or self-care (01) ==
LOC: M SDC 12:01
PROVIDERS: ATTEND Surgery
DX: K42.0 Umbilical hernia with obstruction, without gangrene (principal); I25.10 Atherosclerotic heart disease of native coronary artery without angina pectoris; I25.2 Old myocardial infarction; I10 Essential (primary) hypertension; E78.5 Hyperlipidemia, unspecified; E11.9 Type 2 diabetes mellitus without complications; M10.9 Gout, unspecified; K21.9 Gastro-esophageal reflux disease without esophagitis; F41.9 Anxiety disorder, unspecified; F32.A Depression, unspecified; G43.909 Migraine, unspecified, not intractable, without status migrainosus; Z79.82 Long term (current) use of aspirin; Z79.899 Other long term (current) drug therapy; E66.01 Morbid (severe) obesity due to excess calories; Z88.0 Allergy status to penicillin
CPT/HCPCS: 36415; 49594; 85027; C1781; J0131; J0665; J0690; J1100; J1170; J1885; J2250; J2405; J2765; J3010; S2900